=== PATIENT | male | born 1980 | race Caucasian/White ===

== ENCOUNTER 2018-05-18 21:34 | Emergency (ER) | payer SELFPAY ==
[~2018-05-18] VITALS: Ht 167.6 cm; Wt 77.1 kg
--- NOTE | ~2018-05-18 | EKG ---
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
--- NOTE | ~2018-05-18 | EKG ---
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 YVETTE FERRARI MD
--- NOTE | ~2018-05-18 | EKG ---
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
[~2018-05-18 21:34] MED LIST: CLARITIN10 MG PO; MEDROL DOSEPAK4 MG PO; ZANTAC150 MG PO
[2018-05-18 21:49] LABS: BASO # 0.1 10*3/uL (0.0-0.1); BASO % 0.9 % (0.0-1.0); EOS # 0.3 10*3/uL (0.0-0.4); EOS % 3.9 % (1.0-4.0); HEMATOCRIT 44.9 % (42.0-52.0); HEMOGLOBIN 15.7 g/dl (14.0-18.0); LYMPH # 2.1 10*3/uL (1.3-4.4); LYMPH % 31.8 % (27.0-41.0); MEAN CELL VOLUME 95.5 fl (80.0-94.0); MEAN CORPUSCULAR HGB 33.4 pg (27.0-31.0); MEAN PLATELET VOLUME 9.6 fl (9.6-12.3); MONO # 0.8 10*3/uL (0.1-1.0); MONO % 11.6 % (3.0-9.0); NEUT # 3.5 10*3/uL (2.3-7.9); NEUT % 51.5 % (47.0-73.0); PLATELET COUNT AUTOMATED 214 10*3/uL (130-400); RED CELL DISTRI WIDTH 12.3 % (0-14.5); WHITE BLOOD COUNT 6.7 10*3/uL (4.8-10.8)
[2018-05-18 22:02] LABS: ACT PARTIAL THROMBO TIME 25.1 SECONDS (20.8-31.5)
[2018-05-18 22:11] LABS: ALBUMIN 4.5 gm/dl (3.1-4.5); ALKALINE PHOSPHATASE 67 U/L (45-117); BUN 11 mg/dl (7-24); CHLORIDE 105 mmol/L (98-107); CREATININE 0.97 mg/dL (0.70-1.30); POTASSIUM 3.6 mmol/L (3.5-5.1); SGOT/AST 43 IU/L (3-35); SGPT/ALT 56 U/L (12-78); SODIUM 139 mmol/L (136-145); TOTAL PROTEIN 7.8 gm/dL (6.4-8.2)
[2018-05-18 22:12] LABS: TROPONIN I < 0.015 ng/ml (<0.045)
[2018-05-19] MEDS ORDERED: ATIVAN1 MG PO (01:29)
[2018-05-19] MEDS ORDERED: LISINOPRIL10 M1 PO (01:29)
[2018-05-19 01:46] VITALS: BP 138/90
== END 2018-05-19 02:17 | disposition home or self-care (01) ==
LOC: ED 21:34
PROVIDERS: Emergency Medicine Emergency Medical Services
DX: K21.9 Gastro-esophageal reflux disease without esophagitis (principal); I10 Essential (primary) hypertension; R00.2 Palpitations

== ENCOUNTER 2020-03-26 18:27 | Emergency (ER) | payer SELFPAY ==
[~2020-03-26 18:27] MED LIST changes: +ATIVAN1 MG PO; +LISINOPRIL10 M1 PO
[2020-03-26 18:33] VITALS: BP 124/64
== END 2020-03-26 22:00 | disposition left against medical advice (07) ==
LOC: ED 18:27
DX: S01.511A Laceration without foreign body of lip, initial encounter (principal); I10 Essential (primary) hypertension; K21.9 Gastro-esophageal reflux disease without esophagitis; Y08.89XA Assault by other specified means, initial encounter; Y93.89 Activity, other specified; Y92.89 Other specified places as the place of occurrence of the external cause; Y99.8 Other external cause status

== ENCOUNTER → 2020-09-20 | Outpatient (CLI) | payer SELFPAY | END | disposition home or self-care (01) | LOC: COVID19 16:22 | PROVIDERS: ATTEND Internal Medicine | DX: Z20.828 Contact with and (suspected) exposure to other viral communicable diseases (principal) ==

== ENCOUNTER 2021-01-05 10:42 | Inpatient (IN) | payer MEDICAID ==
[2021-01-05] VITALS (7 sets, daily range): BP systolic 125–145; BP diastolic 63–99
[~2021-01-05] VITALS: Ht 167.6 cm; Wt 67.8 kg
[2021-01-05 11:11] LABS: ACT PARTIAL THROMBO TIME 29.6 SECONDS (20.0-32.1)
[2021-01-05 11:17] LABS: BASO % 0.1 % (0.0-1.0); EOS % 0.1 % (1.0-4.0); HEMATOCRIT 44.3 % (42.0-52.0); LYMPH # 0.4 10*3/uL (1.3-4.4); LYMPH % 3.7 % (27.0-41.0); MEAN CELL VOLUME 89.3 fl (80.0-94.0); MEAN CORPUSCULAR HGB 33.5 pg (27.0-31.0); MEAN PLATELET VOLUME 10.1 fl (9.6-12.3); MONO # 0.6 10*3/uL (0.1-1.0); MONO % 5.4 % (3.0-9.0); NEUT # 10.3 10*3/uL (2.3-7.9); PLATELET COUNT AUTOMATED 142 10*3/uL (130-400); RED BLOOD COUNT 4.96 10*6/uL (4.50-5.90); RED CELL DISTRI WIDTH 11.5 % (0-14.5); WHITE BLOOD COUNT 11.5 10*3/uL (4.8-10.8)
[2021-01-05 11:18] LABS: ALBUMIN 3.8 gm/dl (3.1-4.5); ALKALINE PHOSPHATASE 70 U/L (45-117); BUN 28 mg/dl (7-24); CREATININE 0.85 mg/dL (0.70-1.30); POTASSIUM 3.7 mmol/L (3.5-5.1); SGPT/ALT 368 U/L (12-78); TOTAL PROTEIN 7.5 gm/dL (6.4-8.2)
[2021-01-05 11:21] LABS: MEAN CORPUSCULAR HGB CONC 37.5 g/dl (33.0-37.0)
[2021-01-05 11:24] LABS: BILIRUBIN Negative (Negative); BLOOD 3+ (Negative); CLARITY Cloudy (Clear); COLOR Yellow (Yellow); GLUCOSE Negative (Negative); KETONE 2+ (Negative); LEUKO ESTERASE Negative (Negative); NITRITE Negative (Negative); UROBILINOGEN 0.2 E.U./dl (0.0-1.0)
[2021-01-05 11:24] LABS: ETHYL ALCOHOL < 3.0 mg/dl (<3); SGOT/AST 1489 IU/L (3-35)
[2021-01-05 11:26] LABS: CHLORIDE 68 mmol/L (98-107); SODIUM 106 mmol/L (136-145)
[2021-01-05 11:33] LABS: BACTERIA 2+; EPITHELIAL CELLS 0-2; RBC 0-2 rbc/hpf (0-2); URINE AMPHETAMINES < 1000 (1000ng/ml); URINE BARBITURATES < 200 (200ng/ml); URINE BENZODIAZEPINES < 200 (200ng/ml); URINE CANNABINOIDS (THC) > 50 (50ng/ml); URINE COCAINE < 300 (300ng/ml); URINE METHADONE < 300 (300ng/ml); URINE OPIATES < 300 (300ng/ml); WBC 0-2 wbc/hpf (0-5)
[2021-01-05 11:35] LABS: URINE PHENCYCLIDINE < 25 (25ng/ml)
[2021-01-05 11:41] LABS: THYROID STIM HORMONE (HS) 0.732 uIU/ml (0.358-4.75)
[2021-01-05 12:38] LABS: URINE CHLORIDE, RANDOM < 10 mmol/L
[2021-01-05 12:41] LABS: CPK 101800 U/L (39-308)
[2021-01-05] MEDS ORDERED: LISINOPRIL40 MG PO (13:13)
[2021-01-05 14:43] LABS: BUN 23 mg/dl (7-24); CREATININE 0.67 mg/dL (0.70-1.30); POTASSIUM 3.4 mmol/L (3.5-5.1)
[2021-01-05 14:46] LABS: SODIUM 109 mmol/L (136-145)
[2021-01-05 14:47] LABS: CHLORIDE 73 mmol/L (98-107)
[2021-01-05 19:50] LABS: BUN 21 mg/dl (7-24); CREATININE 0.68 mg/dL (0.70-1.30); POTASSIUM 3.4 mmol/L (3.5-5.1)
[2021-01-05 19:59] LABS: CHLORIDE 73 mmol/L (98-107); SODIUM 111 mmol/L (136-145)
[2021-01-05 23:31] LABS: BUN 17 mg/dl (7-24); CHLORIDE 75 mmol/L (98-107); CREATININE 0.53 mg/dL (0.70-1.30); POTASSIUM 3.2 mmol/L (3.5-5.1)
[2021-01-05 23:33] LABS: SODIUM 113 mmol/L (136-145)
[2021-01-06] VITALS: BP 112/80
[2021-01-06 02:55] LABS: BUN 14 mg/dl (7-24); CHLORIDE 77 mmol/L (98-107); CREATININE 0.57 mg/dL (0.70-1.30)
[2021-01-06 02:58] LABS: SODIUM 112 mmol/L (136-145)
[2021-01-06 04:00] VITALS: BP 113/83
[2021-01-06 06:20] LABS: BUN 13 mg/dl (7-24); CHOLESTEROL 129 mg/dL (<200); CREATININE 0.43 mg/dL (0.70-1.30); POTASSIUM 3.2 mmol/L (3.5-5.1)
[2021-01-06 06:25] LABS: HDL CHOLESTEROL 62 mg/dl (40-60); LDL CHOLESTEROL 46 mg/dL (9-159); TRIGLYCERIDES 103 mg/dl (<150); VLDL CHOLESTEROL 21 mg/dL (6-40)
[2021-01-06 06:36] LABS: CHLORIDE 73 mmol/L (98-107); SODIUM 109 mmol/L (136-145)
[2021-01-06 06:46] LABS: MEAN CELL VOLUME 89.4 fl (80.0-94.0); MEAN CORPUSCULAR HGB 33.9 pg (27.0-31.0); MEAN PLATELET VOLUME 10.4 fl (9.6-12.3); PLATELET COUNT AUTOMATED 119 10*3/uL (130-400); RED BLOOD COUNT 4.36 10*6/uL (4.50-5.90); RED CELL DISTRI WIDTH 11.2 % (0-14.5); WHITE BLOOD COUNT 6.2 10*3/uL (4.8-10.8)
[2021-01-06 06:47] LABS: MEAN CORPUSCULAR HGB CONC 37.9 g/dl (33.0-37.0)
[2021-01-06 07:08] LABS: PLATELET SUFFICIENCY LOW (NORMAL); TOTAL CELLS COUNTED 100 #CELLS
[2021-01-06 07:37] LABS: CPK 35841 U/L (39-308)
[2021-01-06 08:00] VITALS: BP 133/78
[2021-01-06 08:38] LABS: VITAMIN D, 25-HYDROXY 6.3 ng/mL (30-100)
[2021-01-06 09:40] LABS: BUN 12 mg/dl (7-24); CREATININE 0.59 mg/dL (0.70-1.30)
[2021-01-06 09:50] LABS: SODIUM 109 mmol/L (136-145)
[2021-01-06 09:51] LABS: CHLORIDE 73 mmol/L (98-107)
[2021-01-06 13:27] VITALS: BP 91/56
[2021-01-06 16:00] VITALS: BP 135/84
[2021-01-06 16:54] LABS: ALBUMIN 2.8 gm/dl (3.1-4.5); BUN 11 mg/dl (7-24); CHLORIDE 79 mmol/L (98-107); CREATININE 0.47 mg/dL (0.70-1.30); POTASSIUM 3.7 mmol/L (3.5-5.1)
[2021-01-06 16:57] LABS: SODIUM 114 mmol/L (136-145)
[2021-01-06 20:00] VITALS: BP 132/78
[2021-01-07] VITALS: BP 128/80
[2021-01-07 04:00] VITALS: BP 137/83
[2021-01-07 06:12] LABS: BUN 8 mg/dl (7-24); CHLORIDE 84 mmol/L (98-107); CREATININE 0.35 mg/dL (0.70-1.30); POTASSIUM 3.5 mmol/L (3.5-5.1)
[2021-01-07 06:14] LABS: SODIUM 118 mmol/L (136-145)
[2021-01-07 06:50] LABS: CPK 12024 U/L (39-308)
[2021-01-07 08:00] VITALS: BP 141/81
[2021-01-07 12:00] VITALS: BP 141/80
[2021-01-07 13:52] LABS: ALBUMIN 2.6 gm/dl (3.1-4.5); BUN 8 mg/dl (7-24); CHLORIDE 85 mmol/L (98-107); CREATININE 0.35 mg/dL (0.70-1.30); POTASSIUM 4.1 mmol/L (3.5-5.1)
[2021-01-07 13:57] LABS: SODIUM 118 mmol/L (136-145)
[2021-01-07 16:00] VITALS: BP 130/71
[2021-01-07 19:28] LABS: ALBUMIN 2.6 gm/dl (3.1-4.5); ALKALINE PHOSPHATASE 51 U/L (45-117); BUN 7 mg/dl (7-24); CHLORIDE 87 mmol/L (98-107); CREATININE 0.36 mg/dL (0.70-1.30); POTASSIUM 3.8 mmol/L (3.5-5.1); SGOT/AST 222 IU/L (3-35); SGPT/ALT 162 U/L (12-78); SODIUM 120 mmol/L (136-145); TOTAL PROTEIN 5.9 gm/dL (6.4-8.2)
[2021-01-07 20:00] VITALS: BP 127/73
[2021-01-08] VITALS: BP 132/75
[2021-01-08 04:00] VITALS: BP 137/86
[2021-01-08 05:35] LABS: ALBUMIN 2.6 gm/dl (3.1-4.5); ALKALINE PHOSPHATASE 50 U/L (45-117); BUN 7 mg/dl (7-24); CHLORIDE 90 mmol/L (98-107); POTASSIUM 3.6 mmol/L (3.5-5.1); SGOT/AST 155 IU/L (3-35); SGPT/ALT 139 U/L (12-78); SODIUM 122 mmol/L (136-145); TOTAL PROTEIN 5.9 gm/dL (6.4-8.2)
[2021-01-08 05:49] LABS: CPK 2091 U/L (39-308)
[2021-01-08 08:00] VITALS: BP 137/95
[2021-01-08 11:48] VITALS: BP 138/94
[2021-01-08 16:41] VITALS: BP 127/84
[2021-01-08 19:13] LABS: BUN 8 mg/dl (7-24); CHLORIDE 95 mmol/L (98-107); CREATININE 0.36 mg/dL (0.70-1.30); POTASSIUM 3.4 mmol/L (3.5-5.1); SODIUM 126 mmol/L (136-145)
[2021-01-08 19:30] VITALS: BP 137/84
[2021-01-09 01:00] VITALS: BP 141/95
[2021-01-09 04:00] VITALS: BP 144/94
[2021-01-09 06:57] LABS: ALBUMIN 2.3 gm/dl (3.1-4.5); BUN 7 mg/dl (7-24); CHLORIDE 94 mmol/L (98-107); POTASSIUM 3.5 mmol/L (3.5-5.1); SGOT/AST 86 IU/L (3-35); SGPT/ALT 98 U/L (12-78); SODIUM 127 mmol/L (136-145)
[2021-01-09 06:58] LABS: ALKALINE PHOSPHATASE 44 U/L (45-117); TOTAL PROTEIN 5.4 gm/dL (6.4-8.2)
[2021-01-09 07:04] LABS: CPK 913 U/L (39-308)
[2021-01-09 07:36] LABS: HEMATOCRIT 36.7 % (42.0-52.0); MEAN CELL VOLUME 95.6 fl (80.0-94.0); MEAN CORPUSCULAR HGB 33.9 pg (27.0-31.0); MEAN CORPUSCULAR HGB CONC 35.4 g/dl (33.0-37.0); MEAN PLATELET VOLUME 9.3 fl (9.6-12.3); PLATELET COUNT AUTOMATED 170 10*3/uL (130-400); RED BLOOD COUNT 3.84 10*6/uL (4.50-5.90); RED CELL DISTRI WIDTH 11.8 % (0-14.5); WHITE BLOOD COUNT 4.4 10*3/uL (4.8-10.8)
[2021-01-09 08:00] VITALS: BP 146/97
[2021-01-09 08:19] LABS: BASOPHILS 1 % (0-1); TOTAL CELLS COUNTED 100 #CELLS
[2021-01-09 08:20] LABS: BURR CELLS FEW; PLATELET SUFFICIENCY NORMAL (NORMAL)
[2021-01-09 10:44] LABS: BILIRUBIN Negative (Negative); BLOOD Negative (Negative); CLARITY Clear (Clear); COLOR Yellow (Yellow); GLUCOSE Trace (Negative); KETONE 1+ (Negative); LEUKO ESTERASE Negative (Negative); NITRITE Negative (Negative); SPECIFIC GRAVITY 1.015 (1.001-1.030)
[2021-01-09 11:07] LABS: MUCOUS TRACE
[2021-01-09 12:00] VITALS: BP 123/79
[2021-01-09 16:00] VITALS: BP 165/85
[2021-01-09 19:22] LABS: ALBUMIN 2.3 gm/dl (3.1-4.5); BUN 7 mg/dl (7-24); CHLORIDE 98 mmol/L (98-107); CREATININE 0.42 mg/dL (0.70-1.30); POTASSIUM 3.5 mmol/L (3.5-5.1); SODIUM 128 mmol/L (136-145)
[2021-01-09 20:00] VITALS: BP 131/82
[2021-01-10] VITALS: BP 146/93
[2021-01-10 06:12] LABS: ALBUMIN 2.5 gm/dl (3.1-4.5); ALKALINE PHOSPHATASE 49 U/L (45-117); BUN 5 mg/dl (7-24); CHLORIDE 104 mmol/L (98-107); POTASSIUM 3.8 mmol/L (3.5-5.1); SGOT/AST 56 IU/L (3-35); SODIUM 135 mmol/L (136-145)
[2021-01-10 06:13] LABS: CREATININE 0.46 mg/dL (0.70-1.30); SGPT/ALT 87 U/L (12-78)
[2021-01-10 06:17] LABS: HEMATOCRIT 37.6 % (42.0-52.0); MEAN CELL VOLUME 94.5 fl (80.0-94.0); MEAN CORPUSCULAR HGB 33.9 pg (27.0-31.0); MEAN CORPUSCULAR HGB CONC 35.9 g/dl (33.0-37.0); MEAN PLATELET VOLUME 8.7 fl (9.6-12.3); RED BLOOD COUNT 3.98 10*6/uL (4.50-5.90); RED CELL DISTRI WIDTH 11.6 % (0-14.5); WHITE BLOOD COUNT 5.5 10*3/uL (4.8-10.8)
[2021-01-10 06:22] LABS: CPK 548 U/L (39-308); PLATELET COUNT AUTOMATED 255 10*3/uL (130-400)
[2021-01-10 06:40] LABS: BURR CELLS FEW; PLATELET SUFFICIENCY NORMAL (NORMAL); TOTAL CELLS COUNTED 100 #CELLS
[2021-01-10 08:00] VITALS: BP 123/76
[2021-01-10 12:00] VITALS: BP 124/74
[2021-01-10 15:19] LABS: ALBUMIN 2.6 gm/dl (3.1-4.5); BUN 9 mg/dl (7-24); CHLORIDE 105 mmol/L (98-107); CREATININE 0.58 mg/dL (0.70-1.30); POTASSIUM 3.3 mmol/L (3.5-5.1); SODIUM 137 mmol/L (136-145)
[2021-01-10 16:00] VITALS: BP 145/88
[2021-01-10 20:00] VITALS: BP 142/92
[2021-01-11] VITALS: BP 109/56
[2021-01-11 05:30] LABS: ALBUMIN 2.4 gm/dl (3.1-4.5); ALKALINE PHOSPHATASE 50 U/L (45-117); BUN 12 mg/dl (7-24); CHLORIDE 106 mmol/L (98-107); CREATININE 0.53 mg/dL (0.70-1.30); POTASSIUM 3.3 mmol/L (3.5-5.1); SGOT/AST 34 IU/L (3-35); SGPT/ALT 77 U/L (12-78); SODIUM 139 mmol/L (136-145)
[2021-01-11 05:39] LABS: CPK 290 U/L (39-308)
[2021-01-11 08:00] VITALS: BP 163/97
[2021-01-11] MEDS ORDERED: ATARAX,VISTARIL50 MG PO (10:12)
[2021-01-11] MEDS ORDERED: AUGMENTIN 875-875 MG PO (10:12)
[2021-01-11] MEDS ORDERED: VITAMIN D3125 MCG PO (10:12)
[2021-01-11] MEDS ORDERED: ZITHROMAX250 MG PO (10:12)
[2021-01-11] MEDS ORDERED: PANTOPRAZOLE SO40 MG PO (10:12)
[2021-01-11 12:00] VITALS: BP 152/90
== END 2021-01-11 13:04 | disposition home or self-care (01) | DRG 640 ==
LOC: ED 10:42 → EDHOLD 11:47 → ICCU 11:47 → EDHOLD 11:53 → ICCU 12:40 → 4E 01-10 14:44
PROVIDERS: Emergency Medicine; Internal Medicine; Internal Medicine Nephrology; Specialist; Student in an Organized Health Care Education/Training Program; ADMIT Emergency Medicine; ATTEND Emergency Medicine
DX: E87.1 Hypo-osmolality and hyponatremia (principal); J69.0 Pneumonitis due to inhalation of food and vomit; M62.82 Rhabdomyolysis; F10.230 Alcohol dependence with withdrawal, uncomplicated; G93.40 Encephalopathy, unspecified; R74.01 Elevation of levels of liver transaminase levels; K21.9 Gastro-esophageal reflux disease without esophagitis; I10 Essential (primary) hypertension; K08.409 Partial loss of teeth, unspecified cause, unspecified class; F12.10 Cannabis abuse, uncomplicated; F17.210 Nicotine dependence, cigarettes, uncomplicated; F41.9 Anxiety disorder, unspecified; E80.6 Other disorders of bilirubin metabolism; E87.8 Other disorders of electrolyte and fluid balance, not elsewhere classified; D72.829 Elevated white blood cell count, unspecified; D72.810 Lymphocytopenia; E87.6 Hypokalemia; E55.9 Vitamin D deficiency, unspecified; Z82.49 Family history of ischemic heart disease and other diseases of the circulatory system; Z83.6 Family history of other diseases of the respiratory system; F22 Delusional disorders